=== PATIENT | female | born 1990 | race Caucasian/White ===

== ENCOUNTER → 2016-12-14 | Outpatient (CLI) | payer BC ==
[2016-12-14 16:53] LABS: CH 32.2; HCT 39.7 % (34.0-46.0); HDW 2.29; MCH 32.5 pg (25.0-35.0); MCHC 35.2 g/dL (31.0-37.0); MCV 92.2 fL (80.0-100.0); RDW 12.4 % (11.5-15.5); WBC 9.5 k/uL (3.8-10.6)
[2016-12-14 16:57] LABS: Anion Gap 11 mmol/L; Blood Urea Nitrogen 13 mg/dL (7-17); Calcium 9.2 mg/dL (8.4-10.2); Carbon Dioxide 24 mmol/L (22-30); Chloride 103 mmol/L (98-107); Glucose 73 mg/dL (74-99); Non-African American GFR(MDRD) >60 (>60 ml/min/1.73 sqM); Potassium 3.6 mmol/L (3.5-5.1); Sodium 138 mmol/L (137-145)
== END | disposition home or self-care (01) ==
LOC: LABPAT 16:17
PROVIDERS: ATTEND Podiatrist Foot & Ankle Surgery
DX: Z01.812 Encounter for preprocedural laboratory examination (principal)
CPT/HCPCS: 80048; 85027

== ENCOUNTER 2016-12-21 10:34 | Day surgery (SDC) | payer BC, OTHER ==
[2016-12-19 14:40] VITALS: BMI 21.0
[~2016-12-21 10:34] MED LIST: DEXAMETHASONE SOD PHOSPHATE 10 MG/ML 1 ML VIAL IV ONE; HYDROmorphone 1 MG/ML 1 ML SYRINGE IVP PRN; LACTATED RINGERS 1,000 ML IV SCH; MIDAZOLAM 2 MG/2 ML VIAL IV PRN; ONDANSETRON 4 MG/2 ML VIAL IVP ONE; Pre Op ABX Message 1 EACH MISC MISCELLANE ONE; SCOPOLAMINE 1.5MG/72HR PATCH TRANSDERM ONE
[2016-12-21] MEDS ORDERED: fentaNYL (PF) 50 MCG/ML 2 ML AMP ONE (12:57)
[2016-12-21] MEDS ORDERED: PROPOFOL 10 MG/ML 20 ML VIAL IV ONE (12:57)
[2016-12-21] MEDS ORDERED: MIDAZOLAM 2 MG/2 ML VIAL ONE (12:57)
[2016-12-21] MEDS ORDERED: BUPIVACAINE (PF) 0.25% 30 ML VIAL SQ ONE (13:00)
[2016-12-21] MEDS ORDERED: SODIUM CHLORIDE 0.9% 50 ML with ceFAZolin 2,000 MG IV ONE ×2 (13:16)
[2016-12-21] MEDS ORDERED: LACTATED RINGERS 1,000 ML IV ONE (14:04)
--- NOTE | 2016-12-21 14:11 | P.PCN ---
Date of Procedure: 12/21/16 Preoperative Diagnosis: Tailor bunion deformity bilaterally Postoperative Diagnosis: Same Procedure(s) Performed: Tailor bunion correction performed bilaterally with V metatarsal elevating osteotomy and pin fixation both feet Implants: Surgeon: Ben Ramos Indications for Procedure: Operative Findings: Unremarkable Description of Procedure:
[2016-12-21 14:35] VITALS: TEMP 98
[2016-12-21] MEDS ORDERED: HYDROcodone/APAP 5-325MG 1 EACH TAB PO ONE (15:30)
[2016-12-21 15:46] VITALS: BP 116/76; PULSE 62; RESP 16
== END 2016-12-21 16:18 | disposition home or self-care (01) ==
LOC: OR 10:34
PROVIDERS: ATTEND Podiatrist Foot & Ankle Surgery
DX: M21.622 Bunionette of left foot (principal); M21.621 Bunionette of right foot; F17.200 Nicotine dependence, unspecified, uncomplicated; F41.9 Anxiety disorder, unspecified; Z79.891 Long term (current) use of opiate analgesic; Z79.899 Other long term (current) drug therapy
CPT/HCPCS: 28110; J2250; J1100; J2405; J3010; J0690; J2704; 88304; 88311

== ENCOUNTER → 2019-01-19 | Outpatient (CLI) | payer BC, OTHER ==
--- NOTE | 2019-01-20 13:08 | MR ---
EXAMINATION TYPE: MR brain wo/w con DATE OF EXAM: 01/19/2019 COMPARISON: None HISTORY: Migraines CONTRAST: Performed utilizing 5 mL intravenous Gadavist gadolinium contrast. TECHNIQUE: Multiplanar, multiecho imaging on a 3.0 Aleksandra magnet is performed through the brain. Stud y is performed within 24 hours of arrival to the hospital. The craniovertebral junction is normal. The pituitary is normal for the patient age and sex.. Diffusion-weighted imaging is performed. No abnormal hyperintensity is present to suggest an acute i ntracranial infarct or acute ischemic change. There appear to be 3 very tiny subcortical white matter changes, 2 within the right frontal lobe subc ortical white matter, one within the left centrum semiovale which can be associated with migraine hea daches. Other white matter change etiologies could also be considered within the differential. This d oes not appear to be out of proportion to the patient age. Ventricles and sulci are appropriate for the patient age. No abnormal enhancement is evident. IMPRESSIONS: 1. 3 punctate hyperintensities on inversion recovery weighted sequences in subcortical white matter. This finding has been associated with migraine headaches.
== END | disposition home or self-care (01) ==
LOC: RADMRIMAIN 11:42
PROVIDERS: ATTEND Psychiatry & Neurology Neurology
DX: R90.89 Other abnormal findings on diagnostic imaging of central nervous system (principal)
CPT/HCPCS: 70553; A9585

== ENCOUNTER → 2023-08-28 | Outpatient (CLI) | payer OTHER ==
--- NOTE | 2023-08-28 10:26 | XR ---
EXAMINATION TYPE: XR lumbar spine 2 or 3V DATE OF EXAM: 08/28/2023 10:12 AM CLINICAL INDICATION:Female, 33 years old with history of M51.36 OTHER INTERVERTEBRAL DISC DEGENERATIO N, LUM; PHH COMPARISON: None TECHNIQUE: XR lumbar spine 2 or 3V - Frontal, lateral and coned in L5-S1 lateral views of the spine. FINDINGS: Right upper quadrant cholecystectomy clips. No evidence of any acute osseous pathology. No evidence of loss of vertebral body height is seen. There is mild scoliosis alignment of the lumbar v ertebral bodies. Mild scattered disc space narrowing. Multilevel marginal osteophyte formation throug hout the visualized spine. There is facet joint arthropathy throughout the spine. Scattered at least mild neural foraminal stenosis. IMPRESSION: 1. No acute fracture. 2. Mild multilevel disc degeneration.
== END | disposition home or self-care (01) ==
LOC: RADXRMAIN 09:47
PROVIDERS: ATTEND Physician Assistant Medical
DX: M51.36 Other intervertebral disc degeneration, lumbar region (principal)
CPT/HCPCS: 72100

== ENCOUNTER → 2023-08-28 | Outpatient (CLI) | payer OTHER ==
[2023-08-28 09:26] VITALS: BP 128/66; PULSE 65; RESP 15; TEMP 98.4
--- NOTE | 2023-08-28 13:18 | P.PAINPG ---
PQRS Measure Charge Sheet Comment: HISTORY OF PRESENT ILLNESS: A 33 yr old female as a referral from Sana Gleason [facility] presents today w severe and chronic LBP > 10 yrs secondary to DDD, spondylosis and facet arthropathy without myelopathy for evaluation. Pt states pain level is provoked at 10 /10 in intensity, constant, localized in the lumbar spine, predominantly axial, sharp in character w occasional shooting pain towards the LEs. Pain is provoked by over activity. Pain is alleviated by PT x 6 wks in 2020, hea t, ice, medications ([place] 7.5/325mg which pt is "out"), repositioning and rest. Oswestry axial pain score at 35. PMH: OA, MDD/ Anxiety/ Bipolar Disorder PSH: Tubal Ligation (2016), Bunionectomy (2017) SH: Former tobacco user, No ETOH abuse, No illicit drug use FH: Noncontributory All: See list Meds: See list REVIEW OF ORGAN SYSTEMS: CONSTITUTIONAL: No fevers or chills. No recent weight los s. NEUROLOGICAL: + numbness and tingling along the distal extremities. No seizure disorders or headaches. MUSCULOSKELETAL: + pain PSYCHIATRIC: Denies current depression or suicidal thoughts. Physical Examinations : Constitutional : Cooperative , not in acute distress . Neurologic : Cranial nerve II to XII intact. No focal neurological deficits. Psychiatric : alert & oriented x 3. Matching mood & appropriate affect. Judgment & insight intact. Musculoskeletal : Cervical Spine Motor strength in the deltoid and biceps: Normal right side. Normal Left side Motor strength biceps and the wrist ex tensors: Normal right side . Normal left side Motor strength in the triceps muscle: Normal right side. Normal left side Deep tendon reflexes: Normal at the biceps. Normal at Brachioradialis. Normal at triceps Vertebral body tenderness to deep palpation over Cervical facet loading test: positive bilaterally Spurling test: positive bilaterally Neck distraction test: positive bilaterally Nolberto sign: positive bilaterally Lumbar spine Motor strength lower extremities ,thigh and legs 5/5 Right side , 5/5 Left side Deep tendon reflexes : Normal Knee Jerk. Normal Ankle Jerk Vertebral body tenderness over Freeman Test positive Lumbar facet Loading Test: positive Right / positive Left Range of motion of the lumbar spine Flexion 30 degrees, extension 10 degrees Straight Leg Raise test: Left/ Right positive at degree Ana test: positive right / positive left. Severe tenderness over the Sacroiliac joint on the Right / Left sides Gaenslen test: positive bilaterally Seated flexion test: positive bilaterally. Sacral spine : Severe tenderness over the Sacroiliac joint: right side / left side Range of motion: Flexion of the lumbar spine <60 degrees Range of motion: Extension of the lumbar spine <20 degrees Gaenslen's Test positive Ana test: positive right side / left side Thigh Thrust Test Sacral Thrust Test Imaging: MRI noncontrast of the lumbar spine from 03/05/2020 reviewed Assessment/ Plan : Lumbar DDD, Levoscoliosis Recommendation of lumbar x ray M51.26. May need additional imaging if clinically indicated. Will keep narcotic agreement in place w her PCP at this time. All questions answered. I have spent greater than 30 minutes on patient care today. Dr Hanna was available by phone for the evaluation of this patient. The time was used to review the medical records including relevant urine studies and Prescription history (MAPs), review of the available imaging, evaluation and examination of the patient, coordination of care with the medical staff and if applicable referring physicians, as well as creation of the medical record PQRS Narrative: Smoking Status Former smoker Home Medications: Ambulatory Orders Butalb/Acetaminophen/Caffeine [Fioricet 50-300-40 mg Capsule] 1 cap PO Q4HR 12/19/16 Celexa (Unknown Dose) 1 tab PO DAILY 12/19/16 Klonopin (Unknown Dose) 1 mg PO DAILY 12/19/16 HYDROcodone/APAP 5-325MG [[place] 5-325] 1 - 2 tab PO Q4H PRN #25 tab 12/21/16 Controlled Substance Measures - Controlled Substance Measures Is patient prescribed a controlled substance at discharge?: No
== END ==
LOC: PNWHC3 08:35
PROVIDERS: ATTEND Specialist
DX: M51.36 Other intervertebral disc degeneration, lumbar region (principal); M41.80 Other forms of scoliosis, site unspecified; G89.29 Other chronic pain; R20.0 Anesthesia of skin; M19.90 Unspecified osteoarthritis, unspecified site; Z87.891 Personal history of nicotine dependence
CPT/HCPCS: 99211